=== PATIENT | female | born 1955 | race Caucasian/White ===

== ENCOUNTER 2018-11-17 21:54 | Inpatient (IN) ==
[2018-11-17] MEDS ORDERED: ONDANSETRON 4 MG/2 ML VIAL IV PRN (23:01)
[2018-11-18] MEDS: DEXTROSE 5% LACTATED RINGERS 1,000 ML IV SCH ×3 (00:12→17:48)
[2018-11-18] MEDS: PIPERACILLIN/TAZOBACTAM 3,375 MG in SODIUM CHLORIDE 0.9% 100 ML IV SCH ×3 (00:13→15:22)
[2018-11-18] MEDS: HYDROmorphone 2 MG/1 ML VIAL IV PRN ×4 (03:59→20:22)
[2018-11-18 06:14] LABS: Basophils % 0.1 % (0.0-0.8); Eosinophils % 0.1 % (0.00-10.9); Hematocrit 31.6 VOL% (35.7-47.0); Hemoglobin 9.5 GM/DL (12.0-16.0); Immature Granulocytes % 0.6 %; Immature Granulocytes Absolute 0.08 #; Lymphocytes # 0.5 10*3/uL (1.4-4.0); Lymphocytes % 3.8 % (21.3-54.2); Mean Corpuscular HGB Conc 30.1 GM/DL (32-36); Mean Corpuscular Hemoglobin 25 PG (27-34); Mean Corpuscular Volume 83.4 FL (87-102); Mean Platelet Volume 9.3 FL (9.6-12.0); Monocytes # 0.4 10*3/uL (0.11-0.8); Monocytes % 2.8 % (1.7-12.7); Neutrophils # 13.3 10*3/uL (1.4-7.4); Neutrophils % 92.6 % (38.7-73.9); Platelet Count 263 T/CUMM (130-400); Red Blood Count 3.79 MC/CUMM (3.8-5.5); Red Cell Distribution Width 24.1 % (9.3-17.3); White Blood Count 14.3 T/CUMM (4-12)
[2018-11-18 06:33] LABS: Albumin 2.4 G/DL (3.4-5.0); Bilirubin,Total 0.8 MG/DL (0.2-1.0); Calcium 7.7 MG/DL (8.5-10.1); Osmolality,Calculated 280.4 MOS/KG (273-304); Potassium 3.9 MMOL/L (3.5-5.1); Total Protein 5.1 G/DL (6.4-8.3)
[2018-11-18 06:41] LABS: Band Neutrophils 2 % (0-10); Hypochromasia 1+; Lymphocytes 2 % (20-55); Ovalocytes Slight; Platelet Estimate Adequate; Segmented Neutrophils 92 % (50-85); Total Cells Counted 100
[2018-11-18] MEDS: PANTOPRAZOLE 40 MG VIAL IV SCH (08:19)
[2018-11-18] MEDS ORDERED: ALBUTEROL/IPRATROPIUM 3 ML NEB RESP TX ONE ×2 (08:33→11:35)
[2018-11-18] MEDS ORDERED: HEPARIN/NACL 0.9% 2 UNITS/ML 500 ML IV ONE (09:32)
[2018-11-18 10:13] LABS: % Iron Saturation 3.5 % (18-50); Thyroid Stimulating Hormone 1.3 uIU/ml (0.358-3.74)
[2018-11-18 10:17] LABS: Folate 9.7 NG/ML (5.4-24.0)
[2018-11-18] MEDS ORDERED: ALBUMIN 5% 12.5 GM/250 ML VIAL IV ONE (10:23)
[2018-11-18] MEDS ORDERED: SUGAMMADEX 200 MG/2 ML VIAL IV ONE (10:54)
[2018-11-18 10:56] LABS: ABG Base Excess -3.4 MMOL/L (-2.5-2.5); ABG HCO3 21.8 MMOL/L (20-26); ABG Oxygen Saturation 99.1 % (95-100); ABG PCO2 39.7 MM HG (35-48); ABG PH 7.358 (7.35-7.45); ABG PO2 210.6 MM HG (80-95)
[2018-11-18 11:43] LABS: Apearance,Urine CLEAR (Clear); Bacteria,Urine Occasional /HPF (Few); Bilirubin,Urine Negative (Negative); Blood, Urine Negative (Negative); Glucose,Urine (UA) Negative (Negative); Ketones,Urine Negative (Negative); Nitrite,Urine Negative (Negative); Protein,Urine Negative; RBC,Urine <1 /HPF (0-4); Urine Color Straw (Yellow); Urine Urobilinogen < 2.0 EU/DL (0.2-1.0); WBC,Urine <1 /HPF (0-6)
[2018-11-18] MEDS ORDERED: PROPOFOL 200 MG/20 ML VIAL IV ONE (11:43)
[2018-11-18] MEDS ORDERED: MIDAZOLAM 2 MG/2 ML VIAL ONE (11:44)
[2018-11-18] MEDS ORDERED: ONDANSETRON 4 MG/2 ML VIAL ONE (11:44)
[2018-11-18] MEDS ORDERED: SEVOFLURANE 1 UNIT/15 MINUTE INH ONE (11:44)
[2018-11-18] MEDS ORDERED: FUROSEMIDE 20 MG/2 ML VIAL IV ONE (11:44)
[2018-11-18] MEDS ORDERED: PHENYLEPHRINE 1 MG/10 ML SYRINGE IV ONE (11:44)
[2018-11-18] MEDS ORDERED: FUROSEMIDE 20 MG/2 ML VIAL ONE (11:44)
[2018-11-18] MEDS ORDERED: methylPREDNISolone SOD SUC 125 MG/2 ML VIAL ONE (11:44)
[2018-11-18] MEDS ORDERED: PHENYLEPHRINE DRIP 20 MG/250 ML PREMIX IV ONE (11:44)
[2018-11-18] MEDS ORDERED: LACTATED RINGERS 1,000 ML IV ONE (11:45)
[2018-11-18] MEDS ORDERED: ROCURONIUM 100 MG/10 ML VIAL IV ONE (11:45)
[2018-11-18 11:48] LABS: ABG HCO3 20.3 MMOL/L (20-26); ABG PCO2 47.8 MM HG (35-48); ABG TCO2 20.3 MMOL/L (23-27)
[2018-11-18] MEDS ORDERED: LIDOCAINE 2% 20 ML VIAL ONE (12:02)
[2018-11-18] MEDS ORDERED: ROPIVACAINE 0.5% 30 ML VIAL ONE ×2 (12:02)
[2018-11-18] MEDS ORDERED: hydrALAZINE 20 MG/1 ML VIAL IV PRN (13:27)
[2018-11-18] MEDS ORDERED: PHENOL 1.4% THROAT SPRAY 177 ML BOTTLE PO PRN (17:21)
[2018-11-19] MEDS: PIPERACILLIN/TAZOBACTAM 3,375 MG in SODIUM CHLORIDE 0.9% 100 ML IV SCH ×4 (01:05→23:40)
[2018-11-19] MEDS: HYDROmorphone 2 MG/1 ML VIAL IV PRN ×3 (01:05→08:40)
[2018-11-19] MEDS: DEXTROSE 5% LACTATED RINGERS 1,000 ML IV SCH ×4 (02:31→15:24)
[2018-11-19 04:18] LABS: Basophils % 0.1 % (0.0-0.8); Hemoglobin 8.8 GM/DL (12.0-16.0); Immature Granulocytes % 0.7 %; Immature Granulocytes Absolute 0.09 #; Lymphocytes # 0.4 10*3/uL (1.4-4.0); Lymphocytes % 3.2 % (21.3-54.2); Mean Corpuscular HGB Conc 30.3 GM/DL (32-36); Mean Corpuscular Hemoglobin 26 PG (27-34); Mean Corpuscular Volume 84.3 FL (87-102); Mean Platelet Volume 9.2 FL (9.6-12.0); Monocytes # 0.3 10*3/uL (0.11-0.8); Monocytes % 2.4 % (1.7-12.7); Neutrophils # 11.6 10*3/uL (1.4-7.4); Neutrophils % 93.6 % (38.7-73.9); Platelet Count 217 T/CUMM (130-400); Red Blood Count 3.44 MC/CUMM (3.8-5.5); Red Cell Distribution Width 24.1 % (9.3-17.3); White Blood Count 12.4 T/CUMM (4-12)
[2018-11-19 04:24] LABS: ABG Base Excess 1.1 MMOL/L (-2.5-2.5); ABG HCO3 25.4 MMOL/L (20-26); ABG Oxygen Saturation 99.9 % (95-100); ABG PCO2 42.2 MM HG (35-48); ABG PH 7.398 (7.35-7.45)
[2018-11-19 04:26] LABS: INR 1.2; PT Patient Result 13.1 SECS
[2018-11-19 04:46] LABS: Hypochromasia 1+; Lymphocytes 2 % (20-55); Ovalocytes Slight; Platelet Estimate Adequate; Segmented Neutrophils 96 % (50-85); Total Cells Counted 100
[2018-11-19 04:56] LABS: Alanine Aminotransferase 12 U/L (13-56); Albumin 2.5 G/DL (3.4-5.0); Alkaline Phosphatase 48 U/L (45-117); Aspartate Amino Transferase 16 U/L (0-37); Bilirubin,Total < 0.39 MG/DL (0.2-1.0); Blood Urea Nitrogen 11 MG/DL (7-18); Calcium 7.8 MG/DL (8.5-10.1); Glucose 142 MG/DL (74-106); Osmolality,Calculated 279.4 MOS/KG (273-304); Potassium 4.1 MMOL/L (3.5-5.1); Sodium 140 MMOL/L (136-145); Total Protein 5.4 G/DL (6.4-8.3)
[2018-11-19] MEDS: PANTOPRAZOLE 40 MG VIAL IV SCH (08:39)
[2018-11-19] MEDS: CYANOCOBALAMIN 1000 MCG/1 ML VIAL IM SCH (10:40)
[2018-11-19] MEDS: FERRIC GLUCONATE COMPLEX 125 MG in SODIUM CHLORIDE 0.9% 100 ML IV SCH (11:56)
[2018-11-19] MEDS ORDERED: MORPHINE 4 MG/1 ML VIAL IV PRN ×2 (12:21→12:23)
[2018-11-19] MEDS ORDERED: KETOROLAC 30 MG/1 ML VIAL IV ONE (12:24)
[2018-11-19] MEDS: KETOROLAC 15 MG/1 ML VIAL IV SCH ×2 (17:33→23:35)
[2018-11-20 05:17] LABS: Calcium 7.3 MG/DL (8.5-10.1); Osmolality,Calculated 284.8 MOS/KG (273-304); Potassium 4.2 MMOL/L (3.5-5.1)
[2018-11-20 05:19] LABS: Basophils % 0.1 % (0.0-0.8); Eosinophils # 0.1 10*3/uL (0.0-0.87); Eosinophils % 1.5 % (0.00-10.9); Hematocrit 31.8 VOL% (35.7-47.0); Hemoglobin 9.3 GM/DL (12.0-16.0); Immature Granulocytes % 0.6 %; Immature Granulocytes Absolute 0.05 #; Lymphocytes # 0.6 10*3/uL (1.4-4.0); Lymphocytes % 6.3 % (21.3-54.2); Mean Corpuscular HGB Conc 29.2 GM/DL (32-36); Mean Corpuscular Hemoglobin 25 PG (27-34); Mean Corpuscular Volume 85.3 FL (87-102); Monocytes # 0.4 10*3/uL (0.11-0.8); Monocytes % 4.7 % (1.7-12.7); Neutrophils # 7.7 10*3/uL (1.4-7.4); Neutrophils % 86.8 % (38.7-73.9); Platelet Count 228 T/CUMM (130-400); Red Blood Count 3.73 MC/CUMM (3.8-5.5); Red Cell Distribution Width 24.1 % (9.3-17.3); White Blood Count 8.9 T/CUMM (4-12)
[2018-11-20] MEDS: DEXTROSE 5% LACTATED RINGERS 1,000 ML IV SCH (05:31)
[2018-11-20 05:44] LABS: Hypochromasia 1+; Ovalocytes Slight; Platelet Estimate Adequate
[2018-11-20] MEDS: KETOROLAC 15 MG/1 ML VIAL IV SCH ×3 (06:40→17:31)
[2018-11-20] MEDS: PIPERACILLIN/TAZOBACTAM 3,375 MG in SODIUM CHLORIDE 0.9% 100 ML IV SCH ×2 (09:01→17:21)
[2018-11-20] MEDS: PANTOPRAZOLE 40 MG VIAL IV SCH (09:53)
[2018-11-20] MEDS: CYANOCOBALAMIN 1000 MCG/1 ML VIAL IM SCH (09:55)
[2018-11-20] MEDS: CALCIUM (CARBONATE)/VITAMIN D 500 MG-200 UNIT TABLET PO SCH (12:17)
[2018-11-20] MEDS: FERRIC GLUCONATE COMPLEX 125 MG in SODIUM CHLORIDE 0.9% 100 ML IV SCH (12:17)
[2018-11-20] MEDS: ALBUTEROL/IPRATROPIUM 3 ML NEB RESP TX SCH ×2 (12:49→19:45)
[2018-11-20] MEDS: FLUTICASONE/SALMETEROL 250-50 DISKUS 14 DOSE INH SCH (20:40)
[2018-11-21] MEDS: ALBUTEROL/IPRATROPIUM 3 ML NEB RESP TX SCH ×4 (00:36→19:19)
[2018-11-21] MEDS: PIPERACILLIN/TAZOBACTAM 3,375 MG in SODIUM CHLORIDE 0.9% 100 ML IV SCH ×3 (01:10→22:02)
[2018-11-21] MEDS: KETOROLAC 15 MG/1 ML VIAL IV SCH ×4 (01:10→18:43)
[2018-11-21 04:57] LABS: Basophils % 0.2 % (0.0-0.8); Eosinophils # 0.2 10*3/uL (0.0-0.87); Eosinophils % 2.9 % (0.00-10.9); Hemoglobin 10.7 GM/DL (12.0-16.0); Immature Granulocytes % 0.5 %; Immature Granulocytes Absolute 0.03 #; Lymphocytes # 0.7 10*3/uL (1.4-4.0); Lymphocytes % 9.9 % (21.3-54.2); Mean Corpuscular HGB Conc 29.7 GM/DL (32-36); Mean Corpuscular Hemoglobin 25 PG (27-34); Mean Corpuscular Volume 83.5 FL (87-102); Mean Platelet Volume 9.2 FL (9.6-12.0); Monocytes # 0.4 10*3/uL (0.11-0.8); Monocytes % 6.5 % (1.7-12.7); Neutrophils # 5.3 10*3/uL (1.4-7.4); Platelet Count 260 T/CUMM (130-400); Red Blood Count 4.31 MC/CUMM (3.8-5.5); Red Cell Distribution Width 24.3 % (9.3-17.3); White Blood Count 6.7 T/CUMM (4-12)
[2018-11-21 05:14] LABS: Calcium 8.5 MG/DL (8.5-10.1); Osmolality,Calculated 279.3 MOS/KG (273-304); Potassium 3.4 MMOL/L (3.5-5.1)
[2018-11-21] MEDS: LEVOTHYROXINE 50 MCG TABLET PO SCH (06:37)
[2018-11-21] MEDS ORDERED: POTASSIUM CHLORIDE 20 MEQ TABLET PO ONE (07:02)
[2018-11-21] MEDS: PANTOPRAZOLE 40 MG VIAL IV SCH (09:35)
[2018-11-21] MEDS: CALCIUM (CARBONATE)/VITAMIN D 500 MG-200 UNIT TABLET PO SCH (09:37)
[2018-11-21] MEDS: CYANOCOBALAMIN 1000 MCG/1 ML VIAL IM SCH (09:38)
[2018-11-21] MEDS: FLUTICASONE/SALMETEROL 250-50 DISKUS 14 DOSE INH SCH ×2 (09:42→22:03)
[2018-11-21] MEDS ORDERED: LORazepam 0.5 MG TABLET PO ONE (12:30)
[2018-11-21] MEDS: FERRIC GLUCONATE COMPLEX 125 MG in SODIUM CHLORIDE 0.9% 100 ML IV SCH (17:56)
[2018-11-22] MEDS: KETOROLAC 15 MG/1 ML VIAL IV SCH ×2 (01:15→08:13)
[2018-11-22] MEDS: ALBUTEROL/IPRATROPIUM 3 ML NEB RESP TX SCH ×3 (01:47→12:08)
[2018-11-22] MEDS: PIPERACILLIN/TAZOBACTAM 3,375 MG in SODIUM CHLORIDE 0.9% 100 ML IV SCH ×2 (03:57→12:23)
[2018-11-22 05:51] LABS: Basophils % 0.4 % (0.0-0.8); Eosinophils # 0.3 10*3/uL (0.0-0.87); Eosinophils % 5.8 % (0.00-10.9); Hematocrit 35.3 VOL% (35.7-47.0); Hemoglobin 10.5 GM/DL (12.0-16.0); Immature Granulocytes % 0.9 %; Immature Granulocytes Absolute 0.05 #; Lymphocytes # 0.6 10*3/uL (1.4-4.0); Lymphocytes % 10.2 % (21.3-54.2); Mean Corpuscular HGB Conc 29.7 GM/DL (32-36); Mean Corpuscular Hemoglobin 25 PG (27-34); Mean Corpuscular Volume 84.9 FL (87-102); Mean Platelet Volume 9.5 FL (9.6-12.0); Monocytes # 0.5 10*3/uL (0.11-0.8); Monocytes % 9.5 % (1.7-12.7); Neutrophils # 4.2 10*3/uL (1.4-7.4); Neutrophils % 73.2 % (38.7-73.9); Platelet Count 236 T/CUMM (130-400); Red Blood Count 4.16 MC/CUMM (3.8-5.5); Red Cell Distribution Width 24.4 % (9.3-17.3); White Blood Count 5.7 T/CUMM (4-12)
[2018-11-22 05:54] LABS: Calcium 8.5 MG/DL (8.5-10.1); Potassium 4.5 MMOL/L (3.5-5.1)
[2018-11-22 06:48] LABS: Elliptocytes Few; Hypochromasia 2+; Microcytosis 1+; Ovalocytes Few; Platelet Estimate Adequate; Polychromasia Slight; Schistocytes Slight; Target Cells Slight
[2018-11-22] MEDS: LEVOTHYROXINE 50 MCG TABLET PO SCH (08:13)
[2018-11-22 08:54] VITALS: BP 128/77
[2018-11-22] MEDS: FERRIC GLUCONATE COMPLEX 125 MG in SODIUM CHLORIDE 0.9% 100 ML IV SCH (08:55)
[2018-11-22] MEDS: PANTOPRAZOLE 40 MG VIAL IV SCH (08:58)
[2018-11-22] MEDS: CALCIUM (CARBONATE)/VITAMIN D 500 MG-200 UNIT TABLET PO SCH (08:59)
[2018-11-22] MEDS: FLUTICASONE/SALMETEROL 250-50 DISKUS 14 DOSE INH SCH (09:01)
== END 2018-11-22 13:50 | disposition home or self-care (01) | DRG 331 ==
LOC: N.ED 21:54 → N.EDINP 23:01 → N.ICU 23:18 → N.3E 11-19 18:47
PROVIDERS: ADMIT Surgery; ATTEND Surgery

== ENCOUNTER 2019-11-27 19:56 | Inpatient (IN) ==
[2019-11-27] MEDS ORDERED: MORPHINE 4 MG/1 ML VIAL IV PRN (21:34)
[2019-11-27] MEDS ORDERED: ONDANSETRON 4 MG/2 ML VIAL IV PRN (21:34)
[2019-11-27] MEDS ORDERED: ZALEPLON 5 MG CAPSULE PO PRN (21:34)
[2019-11-27] MEDS ORDERED: NICOTINE 21 MG/24 HR PATCH TRANSDERM PRN (21:34)
[2019-11-27] MEDS ORDERED: ACETAMINOPHEN 325 MG TABLET PO PRN (21:34)
[2019-11-27] MEDS ORDERED: guaiFENesin/DM ER 600-30 MG TABLET PO PRN (21:34)
[2019-11-27] MEDS ORDERED: DOCUSATE SODIUM 100 MG CAPSULE PO PRN (21:34)
[2019-11-27] MEDS ORDERED: ALBUTEROL/IPRATROPIUM 3 ML NEB RESP TX PRN (21:38)
[2019-11-27] MEDS ORDERED: hydroCHLOROthiazide 12.5 MG CAPSULE PO PRN (21:39)
[2019-11-27] MEDS ORDERED: ALENDRONATE 35 MG PO SCH (21:45)
[2019-11-27] MEDS ORDERED: hydrALAZINE 20 MG/1 ML VIAL IV PRN (21:48)
[2019-11-27 22:27] LABS: Allen Test Positive
[2019-11-27 22:29] LABS: ABG HCO3 24.5 MMOL/L (20-26); ABG Oxygen Saturation 99.2 % (95-100); ABG PCO2 30.8 MM HG (35-48); ABG PH 7.474 (7.35-7.45); ABG TCO2 19.3 MMOL/L (23-27)
[2019-11-27 22:31] LABS: Hematocrit 40.1 VOL% (35.7-47.0); Hemoglobin 13.4 GM/DL (12.0-16.0); Immature Granulocytes % 0.2 %; Immature Granulocytes Absolute 0.01 #; Lymphocytes # 0.6 10*3/uL (1.4-4.0); Lymphocytes % 11.4 % (21.3-54.2); Mean Corpuscular HGB Conc 33.4 GM/DL (32-36); Mean Corpuscular Volume 90.1 FL (87-102); Mean Platelet Volume 8.9 FL (9.6-12.0); Neutrophils % 84.4 % (38.7-73.9); Platelet Count 176 T/CUMM (130-400); Red Blood Count 4.45 MC/CUMM (3.8-5.5); Red Cell Distribution Width 14.4 % (9.3-17.3); White Blood Count 5.3 T/CUMM (4-12)
[2019-11-27 22:42] LABS: INR 1.1; PT Patient Result 12.2 SECS (9.6-12.2); Partial Thromboplastin Time 30.8 SECS (20.8-36.0)
[2019-11-27] MEDS: BUDESONIDE 0.5 MG/2 ML NEB RESP TX SCH (22:48)
[2019-11-27] MEDS: ARFORMOTEROL 15 MCG/2 ML NEB RESP TX SCH (22:48)
[2019-11-27 22:50] LABS: Calcium 9.1 MG/DL (8.5-10.1); Osmolality,Calculated 277.5 MOS/KG (273-304)
[2019-11-27] MEDS ORDERED: PNEUMOCOCCAL VACCINE (13 VALENT) 0.5 ML SYRINGE IM ONE (23:35)
[2019-11-28] MEDS: LEVOTHYROXINE 50 MCG TABLET PO SCH (06:04)
[2019-11-28] MEDS: ARFORMOTEROL 15 MCG/2 ML NEB RESP TX SCH ×2 (07:14→21:03)
[2019-11-28] MEDS: BUDESONIDE 0.5 MG/2 ML NEB RESP TX SCH ×2 (07:14→21:03)
[2019-11-28] MEDS: POTASSIUM CHLORIDE 10 MEQ TABLET PO SCH (09:16)
[2019-11-28] MEDS: LETROZOLE 2.5 MG TABLET PO SCH (09:16)
[2019-11-28] MEDS: lisinopriL 5 MG TABLET PO SCH (09:16)
[2019-11-28] MEDS: CALCIUM (CARBONATE)/VITAMIN D 600 MG-400 UNIT TABLET PO SCH (09:16)
[2019-11-28] MEDS: DILTIAZEM CD 240 MG CAPSULE PO SCH (09:17)
[2019-11-28] MEDS: RIVAROXABAN 15 MG TABLET PO SCH ×2 (09:17→16:34)
[2019-11-28] MEDS: PANTOPRAZOLE 40 MG TABLET PO SCH (09:18)
[2019-11-28 10:18] LABS: Allen Test Positive
[2019-11-28 10:19] LABS: ABG Base Excess 3.6 MMOL/L (-2.5-2.5); ABG HCO3 27.7 MMOL/L (20-26); ABG Oxygen Saturation 99.3 % (95-100); ABG PCO2 34.1 MM HG (35-48); ABG PH 7.498 (7.35-7.45); ABG TCO2 22.9 MMOL/L (23-27)
[2019-11-28 11:11] LABS: Risk Ratio 2.01; VLDL CHOLESTEROL 21.8 MG/DL
[2019-11-28 14:35] LABS: Apearance,Urine CLEAR (Clear); Bilirubin,Urine Negative (Negative); Blood, Urine Negative (Negative); Glucose,Urine (UA) Negative (Negative); Ketones,Urine Negative (Negative); Mucus,Urine Occasional /LPF (Occasional); Nitrite,Urine Negative (Negative); Protein,Urine Negative; RBC,Urine 1 /HPF (0-4); Squamous Epithelial Cell,Urine Occasional /HPF (0-10); Urine Color Yellow (Yellow); Urine Specific Gravity > 1.060 (1.001-1.035); Urine Urobilinogen < 2.0 EU/DL (0.2-1.0); WBC,Urine 1 /HPF (0-6)
[2019-11-29 05:11] LABS: Hematocrit 40.1 VOL% (35.7-47.0); Hemoglobin 12.7 GM/DL (12.0-16.0); Immature Granulocytes % 0.5 %; Immature Granulocytes Absolute 0.02 #; Lymphocytes % 22.7 % (21.3-54.2); Mean Corpuscular HGB Conc 31.7 GM/DL (32-36); Mean Platelet Volume 9.2 FL (9.6-12.0); Monocytes % 7.9 % (1.7-12.7); Neutrophils % 68.9 % (38.7-73.9); Platelet Count 179 T/CUMM (130-400); Red Blood Count 4.31 MC/CUMM (3.8-5.5); Red Cell Distribution Width 14.5 % (9.3-17.3); White Blood Count 4.2 T/CUMM (4-12)
[2019-11-29 05:52] LABS: Calcium 9.3 MG/DL (8.5-10.1); Osmolality,Calculated 277.7 MOS/KG (273-304)
[2019-11-29] MEDS: ARFORMOTEROL 15 MCG/2 ML NEB RESP TX SCH ×2 (07:16→19:47)
[2019-11-29] MEDS: BUDESONIDE 0.5 MG/2 ML NEB RESP TX SCH ×2 (07:16→19:47)
[2019-11-29] MEDS: LEVOTHYROXINE 50 MCG TABLET PO SCH (08:42)
[2019-11-29] MEDS: lisinopriL 5 MG TABLET PO SCH (08:42)
[2019-11-29] MEDS: LETROZOLE 2.5 MG TABLET PO SCH (08:43)
[2019-11-29] MEDS: CALCIUM (CARBONATE)/VITAMIN D 600 MG-400 UNIT TABLET PO SCH (08:43)
[2019-11-29] MEDS: PANTOPRAZOLE 40 MG TABLET PO SCH (08:43)
[2019-11-29] MEDS: RIVAROXABAN 15 MG TABLET PO SCH ×2 (08:43→18:43)
[2019-11-29] MEDS: POTASSIUM CHLORIDE 10 MEQ TABLET PO SCH (08:43)
[2019-11-29] MEDS: DILTIAZEM CD 240 MG CAPSULE PO SCH (08:44)
[2019-11-30] MEDS: ARFORMOTEROL 15 MCG/2 ML NEB RESP TX SCH (07:12)
[2019-11-30] MEDS: BUDESONIDE 0.5 MG/2 ML NEB RESP TX SCH (07:12)
[2019-11-30 08:04] LABS: Basophils % 0.3 % (0.0-0.8); Hematocrit 39.2 VOL% (35.7-47.0); Hemoglobin 12.6 GM/DL (12.0-16.0); Immature Granulocytes % 0.6 %; Immature Granulocytes Absolute 0.02 #; Lymphocytes # 0.8 10*3/uL (1.4-4.0); Lymphocytes % 26.9 % (21.3-54.2); Mean Corpuscular HGB Conc 32.1 GM/DL (32-36); Mean Corpuscular Volume 91.6 FL (87-102); Neutrophils % 59.2 % (38.7-73.9); Platelet Count 171 T/CUMM (130-400); Red Blood Count 4.28 MC/CUMM (3.8-5.5); Red Cell Distribution Width 14.6 % (9.3-17.3); White Blood Count 3.1 T/CUMM (4-12)
[2019-11-30 08:25] LABS: Calcium 8.7 MG/DL (8.5-10.1); Osmolality,Calculated 270.2 MOS/KG (273-304)
[2019-11-30] MEDS: LEVOTHYROXINE 50 MCG TABLET PO SCH (08:47)
[2019-11-30] MEDS: CALCIUM (CARBONATE)/VITAMIN D 600 MG-400 UNIT TABLET PO SCH (08:47)
[2019-11-30] MEDS: POTASSIUM CHLORIDE 10 MEQ TABLET PO SCH (08:47)
[2019-11-30] MEDS: LETROZOLE 2.5 MG TABLET PO SCH (08:47)
[2019-11-30] MEDS: DILTIAZEM CD 240 MG CAPSULE PO SCH (08:48)
[2019-11-30] MEDS: PANTOPRAZOLE 40 MG TABLET PO SCH (08:48)
[2019-11-30] MEDS: RIVAROXABAN 15 MG TABLET PO SCH (08:48)
[2019-11-30 11:14] VITALS: BP 117/70
[2019-12-01 10:52] LABS: Protein C Activity Plasma 84 % (70 - 150); Protein S Ag (Free) 88 % (65 - 160)
[2019-12-02 16:16] LABS: DRVVT Screen Ratio 2.15 ratio (<1.20); INR 3.6 (0.9-1.1)
[2019-12-02 17:57] LABS: Protein S Activity Plasma 222 % (65 - 160)
== END 2019-11-30 12:10 | disposition home or self-care (01) | DRG 176 ==
LOC: N.4E
PROVIDERS: ADMIT Internal Medicine; ATTEND Internal Medicine